=== PATIENT | male | born 2000 | race Caucasian/White ===

== ENCOUNTER 2023-10-29 15:35 | Outpatient (CLI) | payer OTHER ==
[~2023-10-29] VITALS: Ht 226.1 cm; Wt 90.7 kg
[2023-10-29 16:04] VITALS: PULSE 80; RESP 16; O2SAT 96
[2023-10-29] MEDS: albuterol 2.5 MG/3 ML nebule NEB ONE (16:19)
== END 2023-10-29 23:59 | disposition home or self-care (01) ==
LOC: RT 15:35
PROVIDERS: ATTEND Chiropractor
DX: J45.909 Unspecified asthma, uncomplicated (principal)
CPT/HCPCS: 94060; 94729; 94760